=== PATIENT | female | born 1980 | race Caucasian/White ===

== ENCOUNTER → 2020-06-16 | Outpatient (CLI) | payer BC | LOC: ZCOL.LAB 16:21 | DX: M79.10 Myalgia, unspecified site (principal); R11.2 Nausea with vomiting, unspecified; Z20.828 Contact with and (suspected) exposure to other viral communicable diseases ==

== ENCOUNTER → 2021-05-22 | Outpatient (CLI) | payer BC | LOC: MC.RAD 10:30 | DX: Z12.31 Encounter for screening mammogram for malignant neoplasm of breast (principal); N64.89 Other specified disorders of breast ==

== ENCOUNTER → 2021-06-01 | Outpatient (CLI) | payer BC | LOC: MC.RAD 09:00 | DX: N64.89 Other specified disorders of breast (principal) ==

== ENCOUNTER → 2021-12-17 | Outpatient (CLI) | payer BC | LOC: MC.RAD 07:45 | DX: R92.8 Other abnormal and inconclusive findings on diagnostic imaging of breast (principal) ==